=== PATIENT | female | born 1940 | race Caucasian/White ===

== ENCOUNTER 2024-12-14 09:35 | Emergency (ER) | payer MEDICARE, MEDICAID ==
[~2024-12-14] VITALS: Ht 165.1 cm; Wt 68.0 kg
[~2024-12-14 09:35] MED LIST: LOSA1TAB40 MT; METO-539 PO; TOPUD
[2024-12-14 09:46] VITALS: O2SAT 100
[2024-12-14 10:23] LABS: BASOPHILS % 0.8 % (0.0-2.0); EOSINOPHILS % 2.1 % (0.0-5.0); HEMATOCRIT. 40.9 % (36.0-48.0); HEMOGLOBIN. 13.3 g/dL (12.0-16.0); LYMPHOCYTES % 23.3 % (20.0-50.0); MEAN PLATELET VOLUME 7.4 fl (7.4-10.4); MONOCYTES % 10.0 % (2.0-8.0); NEUTROPHILS % 63.8 % (40.0-76.0); PLATELET 443 x1000/uL (130-400); RED BLOOD CELL COUNT 4.55 mill/uL (4.2-5.4); RED CELL DISTRIBUTION WIDTH 13.4 % (11.6-14.6)
[2024-12-14 10:36] LABS: CREATININE 1.2 mg/dL (0.6-1.0); UREA NITROGEN BLOOD 18.0 mg/dL (9-23)
[2024-12-14] MEDS ORDERED: DOXY100C5 MT (11:06)
[2024-12-14] MEDS: DOXYCYCLINE HYCLATE 100MG CAPSULE PO ONE (11:36)
[2024-12-14 11:37] VITALS: BP 162/50; PULSE 62; RESP 16; TEMP 36.9; O2SAT 100
== END 2024-12-14 11:39 | disposition home or self-care (01) ==
LOC: ER 09:35
DX: J18.9 Pneumonia, unspecified organism (principal); E78.00 Pure hypercholesterolemia, unspecified; I10 Essential (primary) hypertension; Z79.899 Other long term (current) drug therapy; Z98.890 Other specified postprocedural states; Z20.822 Contact with and (suspected) exposure to COVID-19
CPT/HCPCS: 36415; 71045; 80048; 85025; 87426; 99284

== ENCOUNTER 2025-03-27 09:07 | Inpatient (IN) | payer MEDICARE, MEDICAID ==
[~2025-03-27] VITALS: Ht 149.9 cm; Wt 42.7 kg
[~2025-03-27 09:07] MED LIST changes: +DOXY100C5 MT
[2025-03-27 09:39] LABS: BASOPHILS % 1.2 % (0.0-2.0); EOSINOPHILS % 5.7 % (0.0-5.0); HEMATOCRIT. 40.4 % (36.0-48.0); HEMOGLOBIN. 13.4 g/dL (12.0-16.0); LYMPHOCYTES % 28.8 % (20.0-50.0); MEAN PLATELET VOLUME 7.8 fl (7.4-10.4); MONOCYTES % 8.8 % (2.0-8.0); NEUTROPHILS % 55.5 % (40.0-76.0); PLATELET 363 x1000/uL (130-400); RED BLOOD CELL COUNT 4.46 mill/uL (4.2-5.4); RED CELL DISTRIBUTION WIDTH 13.5 % (11.6-14.6)
[2025-03-27 09:59] LABS: CREATININE 0.8 mg/dL (0.6-1.0); UREA NITROGEN BLOOD 9 mg/dL (9-23)
[2025-03-27 10:00] LABS: TROPONIN I HIGH SENSITIVITY 6 ng/L (3.0-34)
[2025-03-27] MEDS ORDERED: AZITHROMYCIN 500MG/250ML 250 ML IV SCH (12:30)
[2025-03-27] MEDS: CEFTRIAXONE 1GM/50ML 50 ML IV ONE (12:34)
[2025-03-27] MEDS: AZITHROMYCIN 500MG in D5W 250ML IV SCH (12:46)
[2025-03-27 14:47] VITALS: BP 135/64; PULSE 71; RESP 16; TEMP 37.252
[2025-03-27 16:00] VITALS: BP 105/60; PULSE 70; RESP 16; TEMP 36.5; O2SAT 99
[2025-03-27 20:00] VITALS: BP 188/61; PULSE 85; RESP 18; TEMP 36.7; O2SAT 100
[2025-03-27] MEDS ORDERED: ONDANSETRON HCL 4MG/2ML INJ IV PRN (20:30)
[2025-03-27] MEDS ORDERED: IPRATROPIUM/ALBUTEROL 0.5-3(2.5)MG/3ML NEB HHN PRN (20:30)
[2025-03-27] MEDS ORDERED: ACETAMINOPHEN 325MG TABLET PO PRN ×2 (20:30)
[2025-03-27] MEDS ORDERED: CLONIDINE 0.2MG TABLET PO PRN (21:45)
[2025-03-27] MEDS: GUAIFENESIN 600MG ER TABLET PO SCH (21:51)
[2025-03-27] MEDS: ENOXAPARIN 40MG/0.4ML SYR SUBCUT SCH (21:51)
[2025-03-27] MEDS ORDERED: DEXTROSE 50% WATER 50ML SYRINGE IV PRN (22:30)
[2025-03-28] VITALS: BP 104/47; PULSE 72; RESP 18; TEMP 36.6; O2SAT 97
[2025-03-28 01:14] LABS: CLARITY URINE CLEAR (CLEAR); COLOR URINE YELLOW (YELLOW); GLUCOSE URINE NEGATIVE (NEGATIVE); KETONES URINE NEGATIVE (NEGATIVE); LEUKOCYTE ESTERASE URINE 3+ (NEGATIVE); NITRITE URINE NEGATIVE (NEGATIVE); OCCULT BLOOD URINE NEGATIVE (NEGATIVE); PH URINE 6.5 (4.5-8.0); PROTEIN URINE NEGATIVE (NEGATIVE); SPECIFIC GRAVITY URINE 1.016 (1.005-1.030); UROBILINOGEN URINE 0.2 E.U./dL (0.2-1.0)
[2025-03-28 01:24] LABS: *AMPHETAMINES SCREEN URINE NEGATIVE (NEGATIVE); *BARBITURATES SCREEN URINE NEGATIVE (NEGATIVE); *BENZODIAZEPINES SCREEN URINE NEGATIVE (NEGATIVE); *COCAINE SCREEN URINE NEGATIVE (NEGATIVE); CANNABINOID URINE SCREEN NEGATIVE (NEGATIVE); ECSTASY MDMA SCREEN URINE NEGATIVE (NEGATIVE); METHADONE URINE SCREEN NEGATIVE (NEGATIVE); OPIATES URINE SCREEN NEGATIVE (NEGATIVE); PHENCYCLIDINE URINE SCREEN NEGATIVE (NEGATIVE)
[2025-03-28 01:28] LABS: BACTERIA URINE 1+; RBC URINE 0-2 /hpf (0-2); SQUAMOUS EPITHELIAL CELL URINE FEW /lpf (RARE/1+)
[2025-03-28 04:00] VITALS: BP 136/58; PULSE 68; RESP 18; TEMP 36.7; O2SAT 96
[2025-03-28] MEDS: BLOOD SUGAR DIAGNOSTIC STRIP TEST SCH (06:41)
[2025-03-28] MEDS: INSULIN LISPRO 100 UNITS/ML SUBCUT SCH (06:41)
[2025-03-28 07:08] LABS: BASOPHILS % 1.3 % (0.0-2.0); EOSINOPHILS % 7.3 % (0.0-5.0); HEMATOCRIT. 37.7 % (36.0-48.0); HEMOGLOBIN. 12.5 g/dL (12.0-16.0); LYMPHOCYTES % 36.1 % (20.0-50.0); MEAN PLATELET VOLUME 8.2 fl (7.4-10.4); MONOCYTES % 11.7 % (2.0-8.0); NEUTROPHILS % 43.6 % (40.0-76.0); PLATELET 316 x1000/uL (130-400); RED BLOOD CELL COUNT 4.16 mill/uL (4.2-5.4); RED CELL DISTRIBUTION WIDTH 13.7 % (11.6-14.6)
[2025-03-28 07:12] LABS: CREATININE 0.7 mg/dL (0.6-1.0)
[2025-03-28 07:13] LABS: T4 FREE 1.32 ng/dL (0.89-1.76); TRIGLYCERIDE 100 mg/dL (0-150); UREA NITROGEN BLOOD 16 mg/dL (9-23)
[2025-03-28 07:14] LABS: LDL CHOLESTEROL 73 mg/dL (5-100); PROTEIN TOTAL 6.2 g/dL (6.0-8.3)
[2025-03-28 07:15] LABS: ASPARTATE AMINOTRANSFERASE 23 IU/L (<34)
[2025-03-28 07:16] LABS: BILIRUBIN DIRECT 0.1 mg/dL (<=3.0); BILIRUBIN TOTAL 0.4 mg/dL (0.1-1.0)
[2025-03-28 08:00] VITALS: BP 147/59; PULSE 67; RESP 18; TEMP 35.7; O2SAT 98
[2025-03-28] MEDS: PANTOPRAZOLE SODIUM 40 MG/VIAL IV SCH (08:54)
[2025-03-28] MEDS: ASPIRIN 81MG EC TABLET PO SCH (08:55)
[2025-03-28] MEDS: LOSARTAN 25 MG TABLET PO SCH (08:55)
[2025-03-28] MEDS: HYDROCHLOROTHIAZIDE 25MG TABLET PO SCH (08:56)
[2025-03-28 12:00] VITALS: BP 131/55; PULSE 71; RESP 18; TEMP 36.5; O2SAT 100
[2025-03-28] MEDS: CEFTRIAXONE 1GM/50ML 50 ML IV SCH (12:25)
[2025-03-28] MEDS: LORATADINE 10MG TABLET PO SCH (12:26)
[2025-03-28] MEDS: AZITHROMYCIN 500MG/250ML 250 ML IV SCH (13:36)
[2025-03-28 16:00] VITALS: BP 124/54; PULSE 64; RESP 18; TEMP 36.6; O2SAT 98
[2025-03-28 20:00] VITALS: BP 124/53; PULSE 69; RESP 18; TEMP 36.6; O2SAT 98
[2025-03-29] VITALS (9 sets, daily range): BP systolic 134–156; BP diastolic 54–61; PULSE 70–101; RESP 14–20; TEMP 36.6–36.8; O2SAT 95–100
[2025-03-29] MEDS: IPRATROPIUM/ALBUTEROL 0.5-3(2.5)MG/3ML NEB HHN SCH (00:25)
[2025-03-29 07:05] LABS: CREATININE 0.7 mg/dL (0.6-1.0); UREA NITROGEN BLOOD 15 mg/dL (9-23)
[2025-03-29 07:14] LABS: BASOPHILS % 1.0 % (0.0-2.0); EOSINOPHILS % 4.7 % (0.0-5.0); HEMATOCRIT. 39.2 % (36.0-48.0); HEMOGLOBIN. 13.1 g/dL (12.0-16.0); LYMPHOCYTES % 30.4 % (20.0-50.0); MEAN PLATELET VOLUME 8.1 fl (7.4-10.4); MONOCYTES % 9.7 % (2.0-8.0); NEUTROPHILS % 54.2 % (40.0-76.0); PLATELET 330 x1000/uL (130-400); RED BLOOD CELL COUNT 4.36 mill/uL (4.2-5.4); RED CELL DISTRIBUTION WIDTH 13.4 % (11.6-14.6)
[2025-03-30] VITALS (9 sets, daily range): BP systolic 122–145; BP diastolic 50–59; PULSE 86–117; RESP 16–20; TEMP 36–37; O2SAT 95–98
[2025-03-30 06:37] LABS: BASOPHILS % 0.3 % (0.0-2.0); EOSINOPHILS % 0.2 % (0.0-5.0); HEMATOCRIT. 37.6 % (36.0-48.0); HEMOGLOBIN. 12.6 g/dL (12.0-16.0); LYMPHOCYTES % 15.2 % (20.0-50.0); MEAN PLATELET VOLUME 8.2 fl (7.4-10.4); MONOCYTES % 7.4 % (2.0-8.0); NEUTROPHILS % 76.9 % (40.0-76.0); PLATELET 337 x1000/uL (130-400); RED BLOOD CELL COUNT 4.18 mill/uL (4.2-5.4); RED CELL DISTRIBUTION WIDTH 13.3 % (11.6-14.6)
[2025-03-30 06:59] LABS: CREATININE 0.8 mg/dL (0.6-1.0)
[2025-03-30 07:00] LABS: UREA NITROGEN BLOOD 12 mg/dL (9-23)
[2025-03-31] VITALS: BP 111/39; PULSE 101; RESP 18; TEMP 36.4; O2SAT 97
[2025-03-31 04:00] VITALS: BP 125/52; PULSE 88; RESP 18; TEMP 36.8; O2SAT 97
[2025-03-31 08:00] VITALS: BP 133/50; PULSE 95; RESP 18; TEMP 36.7; O2SAT 96
[2025-03-31 08:01] VITALS: PULSE 79; RESP 20
[2025-03-31] MEDS: FAMOTIDINE 20MG/2ML VIAL IV SCH (08:58)
[2025-03-31 11:13] VITALS: BP 132/59; TEMP 98
[2025-03-31] MEDS ORDERED: DOXY100C5 MT (13:40)
== END 2025-03-31 12:50 | disposition home or self-care (01) | DRG 179 ==
LOC: ER 09:07 → 8WST 12:46 → EDBEDREQTM 13:04 → EDBEDREQ 13:04
PROVIDERS: ADMIT Internal Medicine; ATTEND Internal Medicine
DX: J15.69 Pneumonia due to other Gram-negative bacteria (principal); I10 Essential (primary) hypertension; J15.9 Unspecified bacterial pneumonia; Z20.822 Contact with and (suspected) exposure to COVID-19; R82.81 Pyuria; R82.71 Bacteriuria; Z79.82 Long term (current) use of aspirin; Z79.899 Other long term (current) drug therapy
CPT/HCPCS: 36415; 71045; 80048; 80061; 80076; 80305; 81003; 82962; 83880; 84439; 84443; 84484; 85025; 87070; 87426; 93005; 93306; 93970; 94070; 94640; 94664; 96365; 97162; 97166; 98960; 99285; J0456; J0696; J1308; J1650; J2470